=== PATIENT | male | born 1985 | race Caucasian/White ===

== ENCOUNTER 2021-03-19 09:58 | Emergency (ER) | payer OTHER, SELFPAY ==
[2021-03-19] VITALS (8 sets, daily range): BP systolic 125–140; BP diastolic 73–79; PULSE 83–88; RESP 13–19; TEMP 36.5; O2SAT 97–100
--- NOTE | 2021-03-19 10:08 | DI.RAD.S_ITS ---
PROCEDURE: XR CHEST 1V INDICATIONS: chest pain TECHNIQUE: One view of the chest was acquired. COMPARISON: None. FINDINGS: Surgical changes and devices: None. Lungs and pleura: An incomplete inspiratory result is noted, causing a crowded appearance to the lung markings. No focal infiltrates are seen. No pneumothorax or significant pleural effusions are seen. Mediastinum: Mediastinal contours appear normal. Heart size is normal. Bones and chest wall: No suspicious bony lesions. Overlying soft tissues appear unremarkable. IMPRESSION: Portable chest within normal limits, with low lung volumes noted. Dictated by: Colin Carolina M.D. on 03/19/2021 at 9:40 Approved by: Colin Carolina M.D. on 03/19/2021 at 9:41
[2021-03-19 10:58] LABS: Add Manual Diff / Slide Review NO; Basophils Absolute Auto 100 /uL (0-100); Basophils Percent Auto 1.1 % (0-2); Eosinophils Absolute Auto 200 /uL (0-450); Eosinophils Percent Auto 2.5 % (2-4); Hematocrit 38.3 % (41-53); Hemoglobin 12.6 g/dL (13.5-17.5); Lymphocytes Absolute Auto 1300 /uL (1100-4500); Mean Corpuscular HGB Conc 32.8 % (30-36); Mean Corpuscular Hemoglobin 28.7 PG (26-34); Mean Corpuscular Volume 87.5 fL (80-100); Monocytes Absolute Auto 500 /uL (0-900); Monocytes Percent Auto 8.6 % (3-14); Neutrophils Absolute Auto 4000 /uL (1500-7000); Neutrophils Percent Auto 65.8 % (50-75); Platelet Count 400 X10^3/uL (150-400); Red Blood Cell Count 4.38 X10^6/uL (4.5-5.9); Red Cell Distribution Width 13.9 % (11.6-14.8); White Blood Cell Count 6.1 X10^3/uL (4.5-11.0)
[2021-03-19 11:06] LABS: Alanine Aminotransferase 20 IU/L (<50); Albumin 4.1 g/dL (3.5-5.0); Alkaline Phosphatase 73 U/L (38-126); Aspartate Aminotransferase 23 IU/L (17-59); BUN Creatinine Ratio 26.6 (6-22); Bilirubin Total 0.3 mg/dL (0.2-1.3); Blood Urea Nitrogen 17 mg/dL (9-20); Calcium 9.6 mg/dL (8.4-10.2); Carbon Dioxide 31 mmol/L (22-32); Chloride 100 mmol/L (98-107); Creatine Kinase 58 U/L (55-170); Estimated Glomerular Filt Rate > 60.0 mL/min (>60); Globulin 4.2 g/dL (1.7-4.1); Glucose 231 mg/dL (70-100); HEMOLYSIS < 15 (0-50); Lipase 39 U/L (23-300); Magnesium 1.9 mg/dL (1.6-2.3); Potassium 4.2 mmol/L (3.4-5.1); Sodium 137 mmol/L (137-145); Total Protein 8.3 g/dL (6.3-8.2)
--- NOTE | 2021-03-19 11:13 | ED_ITS ---
HPI - Arrhythmia/Palpitations General Chief Complaint: Arrhythmia/Palpitations Stated Complaint: Dizzy, rapid heart beat, diabetic Time Seen by Provider: 03/19/21 11:09 Source: patient Mode of arrival: Ambulatory Limitations: no limitations History of Present Illness HPI narrative: Patient is a 36-year-old male has a history of insulin-dependent diabetes and methamphetamine abuse presenting today with sudden onset of not feeling well dizzy lightheaded changes. He has had visual changes off and on in the past. He notes that it sometimes be related to his diabetes. He has not had a primary care provider for some time he buys his insulin [id number] at [employer]. He has some ongoing neuropathy and sciatic pain. He says that he previously used methamphetamine but says that he has stopped it sounds as though he had some congestive heart failure with lower extremity edema. He does not have any lower extremity edema today he has not had any orthopnea he denies any shortness of breath chest pain. He is having some palpitations but is in sinus rhythm. He has not had any fever or chills. No productive cough. Related Data Home Medications Medication Instructions Recorded Confirmed [NOVALIN N] 30 u SQ BID #0 03/11/10 [NOVALIN R] #0 03/11/10 aspirin 325 mg tablet,delayed 325 mg PO PRN #0 06/12/11 release buprenorphine 2 mg-naloxone 0.5 mg 1 yumi SUBLINGUAL #0 06/12/11 sublingual film (Suboxone) Allergies Allergy/AdvReac Type Severity Reaction Status Date / Time No Known Drug Allergies Allergy Verified 03/19/21 10:12 Review of Systems Review of Systems Narrative: GENERAL: Denies chills, fatigue, malaise, fever, sweats, travel HEENT: Blurry vision RESPIRATORY: Denies dyspnea, cough, wheezing, hemoptysis, sputum. CARDIOVASCULAR: Palpitations GASTROINTESTINAL: Denies nausea, vomiting, abdominal pain, diarrhea, constipation, melena. : Denies dysuria, frequency, incontinence, hematuria, urinary retention, flank pain. MUSCULOSKELETAL: Denies weakness, joint pain, or bony pain SKIN: No rash, no erythema, no pruritus NEUROLOGIC: Denies weakness, dizziness, headache, numbness, change in speech, confusion PSYCHIATRIC: No concerning psychosocial issues. 12 point review of systems is negative except for those stated above and HPI Patient History Social History Smoking Status: Current every day smoker Smoking Status: Current every day smoker alcohol intake frequency: 0-2 drinks per day Substance Use Type: former substance user and marijuana Exam Initial Vital Signs Initial Vital Signs: Vital Signs Pulse Rate 87 03/19/21 10:07 Respiratory Rate 15 03/19/21 10:07 Pulse Oximetry 100 03/19/21 10:07 GENERAL: Alert well-appearing 36-year-old male HEENT: Head atraumatic,EOMI, pupils reactive, face symmetric, moist mucous membranes CARDIOVASCULAR: Regular rate and rhythm without murmurs, rubs or gallops. RESPIRATORY: Breath sounds equal bilaterally, no wheezes rales or rhonchi. ABDOMEN: Soft, nontender. Normoactive bowel sounds all 4 quadrants. No guarding or rebound. EXTREMITIES: Normal range of motion, no clubbing or edema. Neurovascularly intact NEUROLOGICAL: Alert and oriented x4.Normal gait and speech. SKIN: Warm, dry, no laceration, no petechiae, no rashes or lesions. Course Orders Ordered: ED Orders 03/19/21 10:40 COVID19 -Nasal swab/Pre-Proc Stat Complete Blood Count AUTO DIFF Stat Comprehensive Metabolic Panel Stat Hemoglobin A1C% w Est Avg Glu Stat Lipase Stat Magnesium Stat TSH w/ Reflex to FT4 Stat Troponin & CK Cardiac Panel Stat 03/19/21 11:30 Urine Microscopic Stat Vital Signs Vital signs: Vital Signs - 8 hr 03/19/21 11:45 Pulse Rate 88 Respiratory Rate 17 Blood Pressure 127/76 Pulse Oximetry 97 MDM - Arrhythmia/Palpitations Lab Data Result diagrams: 03/19/21 10:40 03/19/21 10:40 Labs: Lab Results 03/19/21 03/19/21 03/19/21 Range/Units 10:40 10:40 10:40 WBC 6.1 (4.5-11.0) X10^3/uL RBC 4.38 L (4.5-5.9) X10^6/uL Hgb 12.6 L (13.5-17.5) g/dL Hct 38.3 L (41-53) % MCV 87.5 (80-100) fL MCH 28.7 (26-34) PG MCHC 32.8 (30-36) % RDW 13.9 (11.6-14.8) % Plt Count 400 (150-400) X10^3/uL Neut % (Auto) 65.8 (50-75) % Lymph % (Auto) 22.0 L (25-40) % [place] % (Auto) 8.6 (3-14) % Eos % (Auto) 2.5 (2-4) % Baso % (Auto) 1.1 (0-2) % Neut # (Auto) 4000 (2711-9431) /uL Lymph # (Auto) 1300 (6397-1671) /uL [place] # (Auto) 500 (0-900) /uL Eos # (Auto) 200 (0-450) /uL Baso # (Auto) 100 (0-100) /uL Sodium 137 (137-145) mmol/L Potassium 4.2 (3.4-5.1) mmol/L Chloride 100 (98-107) mmol/L Carbon Dioxide 31 (22-32) mmol/L BUN 17 (9-20) mg/dL Creatinine 0.64 L (0.66-1.25) mg/dL Estimated GFR > 60.0 (>60) mL/min BUN/Creatinine Ratio 26.6 H (6-22) Glucose 231 H (70-100) mg/dL Hemoglobin A1c (4.0-6.0) % Calcium 9.6 (8.4-10.2) mg/dL Magnesium 1.9 (1.6-2.3) mg/dL Total Bilirubin 0.3 (0.2-1.3) mg/dL AST 23 (17-59) IU/L ALT 20 (<50) IU/L Alkaline Phosphatase 73 (38-126) U/L Total Creatine Kinase 58 (55-170) U/L CK-MB (CK-2) TNP CK-MB (CK-2) Rel Index TNP Troponin I < 0.012 (0.01-0.034) ng/mL Total Protein 8.3 H (6.3-8.2) g/dL Albumin 4.1 (3.5-5.0) g/dL Globulin 4.2 H (1.7-4.1) g/dL Albumin/Globulin Ratio 1.0 (1.0-2.8) Lipase 39 (23-300) U/L TSH 1.99 (0.47-4.68) uIU/mL Urine RBC (0-5/HPF) Urine WBC (0-5/HPF) Urine Bacteria (None) Ur Culture Indicated? SARS-CoV-2 (PCR) (Negative) 03/19/21 03/19/21 03/19/21 Range/Units 10:40 10:40 11:30 WBC (4.5-11.0) X10^3/uL RBC (4.5-5.9) X10^6/uL Hgb (13.5-17.5) g/dL Hct (41-53) % MCV (80-100) fL MCH (26-34) PG MCHC (30-36) % RDW (11.6-14.8) % Plt Count (150-400) X10^3/uL Neut % (Auto) (50-75) % Lymph % (Auto) (25-40) % [place] % (Auto) (3-14) % Eos % (Auto) (2-4) % Baso % (Auto) (0-2) % Neut # (Auto) (7151-5188) /uL Lymph # (Auto) (7896-7396) /uL [place] # (Auto) (0-900) /uL Eos # (Auto) (0-450) /uL Baso # (Auto) (0-100) /uL Sodium (137-145) mmol/L Potassium (3.4-5.1) mmol/L Chloride (98-107) mmol/L Carbon Dioxide (22-32) mmol/L BUN (9-20) mg/dL Creatinine (0.66-1.25) mg/dL Estimated GFR (>60) mL/min BUN/Creatinine Ratio (6-22) Glucose (70-100) mg/dL Hemoglobin A1c 13.0 H (4.0-6.0) % Calcium (8.4-10.2) mg/dL Magnesium (1.6-2.3) mg/dL Total Bilirubin (0.2-1.3) mg/dL AST (17-59) IU/L ALT (<50) IU/L Alkaline Phosphatase (38-126) U/L Total Creatine Kinase (55-170) U/L CK-MB (CK-2) CK-MB (CK-2) Rel Index Troponin I (0.01-0.034) ng/mL Total Protein (6.3-8.2) g/dL Albumin (3.5-5.0) g/dL Globulin (1.7-4.1) g/dL Albumin/Globulin Ratio (1.0-2.8) Lipase (23-300) U/L TSH (0.47-4.68) uIU/mL Urine RBC 1-5/hpf (0-5/HPF) Urine WBC None seen (0-5/HPF) Urine Bacteria Occasional (0-1) (None) Ur Culture Indicated? Cult not indicated SARS-CoV-2 (PCR) Negative (Negative) Point of Care Testing Glucose POC 258 Urine Dip Bedside Urine Glucose 1000 mg/dl Bedside Urine Bilirubin - Negative Bedside Urine Ketone - Negative Urine Specific [place] 1.015 Bedside Urine Occult Blood +/- Bedside Urine pH 7.5 Bedside Urine Protein ++ 100 Bedside Urine Urobilinogen - Negative Bedside Urine Nitrite - Negative Bedside Urine Leukocytes - Negative Esterase Imaging Data Chest x-ray: Radiologist's Impresson: PROCEDURE:? XR CHEST 1V ? INDICATIONS:? chest pain ? TECHNIQUE:? One view of the chest was acquired.? ? COMPARISON:? None. ? FINDINGS:? ? Surgical changes and devices:? None.? ? Lungs and pleura:? An incomplete inspiratory result is noted, causing a crowded appearance to the lung markings.? No focal infiltrates are seen.? No pneumothorax or significant pleural effusions are seen. ? ? Mediastinum:? Mediastinal contours appear normal.? Heart size is normal.? ? Bones and chest wall:? No suspicious bony lesions.? Overlying soft tissues appear unremarkable.? IMPRESSION:? Portable chest within normal limits, with low lung volumes noted. ? ? Dictated by: Colin Carolina M.D. on 03/19/2021 at 9:40 ? ? ECG Data Interpretation: Normal sinus rhythm rate 88 ID interval 132 QRS [address] changes MDM Narrative Medical decision making narrative: Patient has no fever chills. He has no e vidence of fluid retention at this time. Glucose is elevated at 200. I asked him if he thought his glucose IV low this morning. However he says that he does not feel like it was low has been low in the past. He is not have glucometer strips. He gets his 1st paycheck,he planned on on buying them. Discharge Plan Departure Patient Disposition: Home Clinical Impression: Palpitations, Diabetes Instructions: DI for Diabetes Type 1 -- Adult, DI for Arrhythmias Activity Restrictions/Additional Instructions: [id number]=15 *You have been diagnosed with diabetes and palpitations Your COVID test is negative today. If you have not yet been vaccinated I encourage you to do so. *What to do: At this time please follow-up with a primary care provider to help better control your diabetes. Good job continuing to use insulin. Please avoid methamphetamines *Continue to take medications as directed *Follow up with your primary care provider in 2-3 days *Return to ER if you should have increasing chest pain, palpitations, shortness of breath any new, worsening or concerning symptoms Prescriptions: No Action [NOVALIN N] 30 u SQ BID Qty: 0 RF: 0 [NOVALIN R] Qty: 0 RF: 0 aspirin 325 MG tablet,delayed release (DR/EC) 325 mg PO PRN Qty: 0 RF: 0 buprenorphine-naloxone [Suboxone] 2 MG/0.5 MG film 1 yumi Sublingual Qty: 0 RF: 0 Referrals: [facility] [Outside]
[2021-03-19 11:17] LABS: Troponin I < 0.012 ng/mL (0.01-0.034)
[2021-03-19 11:22] LABS: COVID19 -Nasal RAPID Negative (Negative)
[2021-03-19 11:43] LABS: TSH w/ Reflex to FT4 1.99 uIU/mL (0.47-4.68)
[2021-03-19 12:02] LABS: WBC Urine None Seen (0-5/HPF)
--- NOTE | 2021-03-19 12:14 | PC.NURSE ---
pt states he felt like his heart was beating regularly. feels better now.
[2021-03-19 12:17] LABS: Bacteria Urine Occasional (0-1); Culture Indicated Urine Cult Not Indicated; RBC Urine 1-5/HPF (0-5/HPF)
== END 2021-03-19 12:15 | disposition home or self-care (01) ==
PROVIDERS: Emergency Provider Emergency Medicine
DX: R00.2 Palpitations (principal); E10.8 Type 1 diabetes mellitus with unspecified complications; Z20.822 Contact with and (suspected) exposure to COVID-19
CPT/HCPCS: 36415; 71045; 80053; 81003; 81015; 82550; 82962; 83036; 83690; 83735; 84443; 84484; 85025; 87635; 93005; 99283; 99284; C9803